=== PATIENT | female | born 2000 | race Caucasian/White ===

== ENCOUNTER → 2019-12-15 14:14 | Outpatient (BNVA) | payer MEDICAID, SELFPAY | PROVIDERS: Family Provider Family Medicine; PCP Family Medicine; Visit Provider Nurse Practitioner Women's Health | DX: Z34.90 Encounter for supervision of normal pregnancy, unspecified, unspecified trimester (principal) | CPT/HCPCS: 81000 ==

== ENCOUNTER → 2019-12-29 14:03 | Outpatient (BNVA) | payer MEDICAID, SELFPAY | PROVIDERS: Family Provider Family Medicine; PCP Family Medicine; Visit Provider Obstetrics & Gynecology | DX: O26.842 Uterine size-date discrepancy, second trimester (principal); O99.332 Smoking (tobacco) complicating pregnancy, second trimester | CPT/HCPCS: 80053; 80307; 81000; 85027; 86592; 86762; 86803; 86850; 86900; 87340; 87491; 87591; 87806 ==

== ENCOUNTER → 2020-02-28 15:08 | Outpatient (BNVA) | payer MEDICAID, SELFPAY | PROVIDERS: Family Provider Family Medicine; PCP Family Medicine; Visit Provider Obstetrics & Gynecology | DX: O32.1XX0 Maternal care for breech presentation, not applicable or unspecified (principal); Z3A.23 23 weeks gestation of pregnancy | CPT/HCPCS: 76805 ==

== ENCOUNTER → 2020-03-01 13:04 | Outpatient (BNVA) | payer MEDICAID, SELFPAY | PROVIDERS: Family Provider Family Medicine; PCP Family Medicine; Visit Provider Obstetrics & Gynecology | DX: Z34.90 Encounter for supervision of normal pregnancy, unspecified, unspecified trimester (principal) | CPT/HCPCS: 81000 ==

== ENCOUNTER → 2020-04-05 14:12 | Outpatient (BNVA) | payer MEDICAID, SELFPAY | PROVIDERS: Family Provider Family Medicine; PCP Family Medicine; Visit Provider Obstetrics & Gynecology | DX: O23.40 Unspecified infection of urinary tract in pregnancy, unspecified trimester (principal); O99.333 Smoking (tobacco) complicating pregnancy, third trimester; F17.210 Nicotine dependence, cigarettes, uncomplicated; Z3A.28 28 weeks gestation of pregnancy | CPT/HCPCS: 81000; 82950; 85027; 87086 ==

== ENCOUNTER → 2020-04-19 13:54 | Outpatient (BNVA) | payer MEDICAID, SELFPAY | PROVIDERS: Family Provider Family Medicine; PCP Family Medicine; Visit Provider Obstetrics & Gynecology | DX: Z34.90 Encounter for supervision of normal pregnancy, unspecified, unspecified trimester (principal) | CPT/HCPCS: 81000 ==

== ENCOUNTER → 2020-05-03 13:54 | Outpatient (BNVA) | payer MEDICAID, SELFPAY | PROVIDERS: Family Provider Family Medicine; PCP Family Medicine; Visit Provider Obstetrics & Gynecology | DX: Z34.90 Encounter for supervision of normal pregnancy, unspecified, unspecified trimester (principal) | CPT/HCPCS: 81000 ==

== ENCOUNTER → 2020-05-22 10:34 | Outpatient (BNVA) | payer MEDICAID, SELFPAY | PROVIDERS: Family Provider Family Medicine; PCP Family Medicine; Visit Provider Obstetrics & Gynecology | DX: Z34.83 Encounter for supervision of other normal pregnancy, third trimester (principal) | CPT/HCPCS: 81000 ==

== ENCOUNTER → 2020-05-31 14:41 | Outpatient (BNVA) | payer MEDICAID, SELFPAY | PROVIDERS: Family Provider Family Medicine; PCP Family Medicine; Visit Provider Obstetrics & Gynecology | DX: Z34.83 Encounter for supervision of other normal pregnancy, third trimester (principal) | CPT/HCPCS: 81000; 87081 ==

== ENCOUNTER → 2020-06-07 15:11 | Outpatient (BNVA) | payer MEDICAID, SELFPAY | PROVIDERS: Family Provider Family Medicine; PCP Family Medicine; Visit Provider Obstetrics & Gynecology | DX: Z34.83 Encounter for supervision of other normal pregnancy, third trimester (principal) | CPT/HCPCS: 81000 ==

== ENCOUNTER 2020-06-08 12:05 | Outpatient (CLI) | payer MEDICAID, SELFPAY ==
[2020-06-08 12:43] VITALS: BMI 24.9
[2020-06-08 12:51] VITALS: BP 136/72; PULSE 78
[2020-06-08 12:59] LABS: Nitrazine Paper, PH Negative
[2020-06-08 13:01] LABS: Nitrazine Paper, PH Negative
--- NOTE | 2020-06-08 13:09 | PM.ACPR ---
Procedure/Consent Procedure Narrative: NONSTRESS TEST: Place of test: [facility] [place]D Indication: 19-year-old 2 para 1-0-0-1 at 37 weeks with abdominal pain and leaking of fluid Date and time of test: 06/08/2020 1:30 PM Baseline: 135 Variability: Moderate variability Accelerations: Present Decelerations: No decelerations Tocometry: No contractions, some irritability INTERPRETATION: NST reactive, reassuring status, continue kick counts
[2020-06-08 13:21] VITALS: BP 132/76; PULSE 82
[2020-06-08 14:31] VITALS: BP 132/76; PULSE 82; RESP 18
== END 2020-06-08 13:40 | disposition home or self-care (01) ==
LOC: OPOB 12:11 → NUR 12:15 → OBGYN 12:25
PROVIDERS: Absent Provider Obstetrics & Gynecology; Family Provider Family Medicine; PCP Family Medicine; Visit Provider Obstetrics & Gynecology
DX: O26.899 Other specified pregnancy related conditions, unspecified trimester (principal); Z3A.00 Weeks of gestation of pregnancy not specified; R10.9 Unspecified abdominal pain; N89.8 Other specified noninflammatory disorders of vagina
CPT/HCPCS: 59025; 83986; 99211

== ENCOUNTER 2020-06-08 21:57 | Inpatient (IN) | payer MEDICAID, SELFPAY ==
[2020-06-08] VITALS (48 sets, daily range): BP systolic 115–161; BP diastolic 56–90; PULSE 64–95; RESP 16–17; TEMP 36.4; O2SAT 98–100; BMI 24.9
[2020-06-08 20:29] LABS: Basophils # 0.1 10^3/uL (0.0-0.1); Basophils % 0.4 %; Eosinophils # 0.5 10^3/uL (0.0-0.8); Eosinophils % 2.9 %; Hematocrit 38.7 % (37.0-47.0); Hemoglobin 12.8 g/dL (11.5-15.3); Lymphocytes # 2.4 10^3/uL (1.5-6.5); Lymphocytes % 14.6 %; Mean Corpuscular HGB Conc 33.1 g/dL (30.0-36.0); Mean Corpuscular Hemoglobin 30.1 pg (28.0-34.0); Mean Corpuscular Volume 91.1 fL (81-99); Mean Platelet Volume 11.9 fL (7.4-10.4); Monocytes # 0.8 10^3/uL (0.2-0.9); Monocytes % 5.1 %; Neutrophils # 12.62 10^3/uL (1.8-8.0); Neutrophils % 76.7 %; Nucleated Red Blood Cells % 0 %; Platelet Count 187 10^3/cmm (130-400); Red Blood Count 4.25 10^6/uL (4.1-5.3); Red Cell Distribution Width 13.5 % (12.1-15.1); White Blood Count 16.5 10^3/uL (4.5-13.0)
[2020-06-08] MEDS: lactated ringers 1,000 ML 999 ML IV ×2 (20:31→22:06)
--- NOTE | 2020-06-08 20:37 | PC.NURSE ---
called lab, machine that runs protein creatinine ratio is down for maintenance, results will be available in approximately 45 min.
[2020-06-08 20:38] LABS: Alanine Aminotransferase 9 U/L (0-33); Albumin Level 3.6 g/dL (3.5-5.2); Alkaline Phosphatase 171 IU/L (35-105); Anion Gap 14.7 (5-19); Aspartate Amino Transferase 12 U/L (0-32); Blood Urea Nitrogen 12 mg/dL (6-20); Carbon Dioxide 23 mmol/L (22-29); Chloride 104 mmol/L (98-107); Globulin 3.4 g/dL (1.3-4.6); Glomerular Filtration Rate 127.5 mL/min (90-130); Glucose 78 mg/dL (65-115); Osmolality Calculated 285 mOsm/kg (285-295); Potassium 3.7 mmol/L (3.5-5.1); Sodium 138 mmol/L (136-145); Total Bilirubin 0.2 mg/dL (0.15-1.2); Uric Acid 4.3 mg/dL (2.4-5.7)
[2020-06-08 22:01] LABS: UPRO/UCREAT Ratio 0.06 mg/mg CR; Urine Creatinine 142 mg/dL (28-217); Urine Protein Random 9 mg/dL
--- NOTE | 2020-06-08 22:55 | ANES.PREANE2 ---
Pre-Anesthetic Assessment Pre-Anesthetic Assessment: Height/Weight: Height 1.7 m Weight 72.121 kg Temp Pulse Resp BP Pulse Ox 97.5 F L 68 16 126/60 100 06/08/20 20:13 06/08/20 22:51 06/08/20 19:01 06/08/20 22:51 06/08/20 22:49 Preop Diagnosis: labor pains Proposed Procedure: epidural Familial anesthetic complications: nerve pain post previous epidural. Was Beta Zohaib taken within 24 hours: N/A Was Clonidine taken within 24 hours: N/A Social: Social History: Tobacco and No alcohol Packs per day: 0.5 Exam: Pre-Anes Outpt Exam: alert, oriented x 3, clear to auscultation bilaterally and regular rate & rhythm Airway: Submandibular: WNL Cervical ROM: WNL MP: 1 Dentition: Full Pulmonary: Pulmonary: None reported CV/HEM: CV/HEM: None reported : : None reported Hepatic: Hepatic: None reported GI: GI: None reported Metabolic: Metabolic: None reported Musc/skel: Musc/skel: None reported Neuropsych: Neuropsych: ACUNA (migraines) Anesthetic Plan: ASA status: 2 Anesthesia: Regional (specify below) Risk of > 500 ml blood loss (7ml/kg in children): No Meds/Allergies Current Medications: Current Medications Generic Name Dose Route Start Last Admin Trade Name Freq PRN Reason Stop Dose Admin Lactated Ringer's 1,000 mls @ 999 m ls/hr 06/08/20 21:57 06/08/20 22:06 Lactated Ringers IV 999 mls/hr .Q1H1M PRN Administration See label comment s PFSH Anesthesia PFSH: Medical History (Updated 06/04/20 @ 16:02 by Chencho Garcia MD) Blood type O+ Excessive and frequent menstruation with irregular cycle Migraine States no meds needed for a while. Had been tried on amitriptyline in the past without help. Surgical History (Updated 12/31/19 @ 17:07 by Chencho Garcia MD) Hx of tonsillectomy (03/13/17) Performed in [place], [place] Family History Mother Hypertension Father Hypertension Hypercholesteremia Grandfather Hypertension Maternal Heart disease Maternal Grandfather Hypercholesteremia Maternal Grandmother Hypertension Maternal Heart disease Maternal Thyroid disease Maternal Hypercholesteremia Maternal Breast cancer Paternal Colon cancer Paternal Family/Other Diabetes Maternal aunt and maternal great aunt Thyroid disease Maternal Aunt, Maternal Great Aunt Breast cancer Maternal Great aunt Social History (Updated 06/04/20 @ 15:55 by Chencho Garcia MD) Smoking and tobacco status: current every day smoker cigarettes [ Other cigarette details: Started age 17. Was 1 pack/day. ] Quit status (tobacco): considering quitting Alcohol intake: never Female Reproductive History: : 2 Data Anesthesia CBC & Chem 7: 06/08/20 20:00 06/08/20 20:00 Other Labs: Laboratory Results - last 48 hr 06/08/20 06/08/20 06/08/20 20:00 20:00 20:11 WBC 16.5 H RBC 4.25 Hgb 12.8 Hct 38.7 MCV 91.1 MCH 30.1 MCHC 33.1 RDW 13.5 Plt Count 187 MPV 11.9 H Neut % (Auto) 76.7 Lymph % (Auto) 14.6 Carolina % (Auto) 5.1 Eos % (Auto) 2.9 Baso % (Auto) 0.4 Neut # (Auto) 12.62 H Lymph # (Auto) 2.4 Carolina # (Auto) 0.8 Eos # (Auto) 0.5 Baso # (Auto) 0.1 Nucleated RBC % (auto) 0 Nucleated RBCs # 0.0 Sodium 138 Potassium 3.7 Chloride 104 Carbon Dioxide 23 Anion Gap 14.7 BUN 12 Creatinine 0.6 GFR Calculation 127.5 Glucose 78 Calculated Osmolality 285 Uric Acid 4.3 Calcium 9.0 Total Bilirubin 0.2 AST 12 ALT 9 Alkaline Phosphatase 171 H Total Protein 7.0 Albumin 3.6 Globulin 3.4 U Random Total Protein 9 Urine Creatinine 142 Protein/Creatinin Ratio 0.06 Cardiac Studies: No Data to Display
--- NOTE | 2020-06-08 22:58 | P.ANES_ITS ---
Anesthesia Procedures Procedure/Date: 06/08/20 epidural Procedure Narrative: epidural complete, bolus given, epidural pump initiated with MANAGER INVENTORY CONTROL education given, vitals taken during procedure using OBIX system and satisfactory throughout, patient admits to decrease pain, report of procedure to OB RN Epidural: Time Out Performed: Yes Consents Signed: Procedure Consent Consent: requested by attending/covering physician, from patient, risks and benefits reviewed and patient agrees to proceed Lumbar Level: L3-L4 Epidural position: sitting Epidural procedure: sterile prep of area, 1% lidocaine to numb the area (3 mL), 18 g needle, negative for paresthesia passed, neg for paresthesia, test dose given, 1.5% xylocaine 1:200k epi (5 mL), 0.2% Ropivacaine bolus ml (5 mL), placed PCEA, no systemic response, sterile dressing applied, L.U.D. no apparent complications and 0.2% Ropiavacaine @ mls/hr (13 mL/hr)
[2020-06-09] VITALS (41 sets, daily range): BP systolic 98–141; BP diastolic 50–75; PULSE 65–111; RESP 16; TEMP 36.7; O2SAT 97–100
[2020-06-09] MEDS: oxytocin 30 UNIT/500 ML BAG IV (00:57)
[2020-06-09] MEDS: dextrose 5%-lactated ringers 1,000 ML 125 ML IV (03:48)
[2020-06-09] MEDS: miSOPROStol 200 mcg Tablet 400 MCG PR (06:40)
--- NOTE | 2020-06-09 07:25 | PM.DELIVERY ---
Delivery Note: Date of delivery: June 09, 2020 - PRE-DELIVERY DIAGNOSIS: 19-year-old 2 para 1-0-0-1 at 37 weeks and 4 days gestation Active labor GBS negative Elevated blood pressure- likely secondary to pain POST-DELIVERY DIAGNOSIS: Vaginal delivery on 06/09/2020 PROCEDURE: Vaginal delivery on 06/09/2020 ANESTHESIA: Epidural anesthesia DELIVERING PHYSICIAN: Godwin Cooper FACOG PRE-DELIVERY COURSE: Ms. Perla is a 19-year-old 2 para 1-0-0-1 at 37 weeks and 3 days gestation who presented to labor and delivery on 06/08/2020 with reports of contractions. She had been seen earlier in the day and was noted to be 3/70-2 station. When she presented later that evening she was noted to be exactly the same however looked a lot more uncomfortable and was breathing through few contractions. tracing was category 1 and she was elmer every 2 to 5 minutes. She was also noted to have elevated blood pressure of 140/90. Preeclamptic labs were sent and protein creatinine ratio was normal and other labs were also normal. During her observation over 3 hours she made cervical change to 4 cm 90% and -1 station and was uncomfortable elmer every 3 minutes. She was admitted in active labor, GBS was negative and Covid swabbing was done. She progressed to 5 cm 90% and -1 station and received an epidural. After this her contractions did space out to every 6 to 7 minutes and as result Pitocin was started to augment labor which was titrated to a maximum of 4 mIU and with this she made steady cervical change and was fully dilated by 5:45 AM on 06/09/2020. She was set up in lithotomy ready to push. tracing was category 1 thus far. DELIVERY NOTE: She was set up in lithotomy position and was pushing effectively. She was noted to be +3 station and continued pushing well. The head delivered in JOSE J position, nuchal cord x1 present. The shoulders and rest of the body followed with her next push. The baby's mouth and nose were suctioned and the baby was placed on the mother's belly. Once cord pulsations stopped the cord was clamped and cut. The placenta delivered spontaneously intact with membranes and was discarded. The fundus was noted to be firm and well contracted. The vagina and cervix were inspected and no cervical or sulcal lacerations were noted. The perineum was noted to be intact Baby boy, born at 6:33 AM on 06/09/2020 with 9/9, weighing 6 pounds 8 ounces, 18.5 inches long. Placenta was delivered spontaneously intact with membranes at 6:37 AM. Cotyledons were intact , centrally inserted umbilical cord with 3 vessels noted. Appears to have a circumvallate membrane incision. Pathology ordered Estimated blood loss 150 mL. Complications-none, both baby and mother were left to recover in a stable condition This documentation was created by [email or web address] advertising specialist software (known for inherent advertising specialist error). Every effort was made to assure accuracy of advertising specialist. Any obvious errors or omissions should be clarified with the author of the document. Coding Level of Care Code Acute Manager Product for Shawna Bower
[2020-06-09] MEDS: docusate sodium 100 mg Capsule PO (08:31)
[2020-06-09] MEDS: ibuprofen 800 mg tablet PO ×3 (08:31→21:57)
[2020-06-09] MEDS: benzocaine-menthol 78 gm Canister 1 SPRAY TOPICAL (08:31)
[2020-06-09] MEDS: lanolin oint 7 gm 1 APPLIC TOPICAL (08:31)
[2020-06-09] MEDS: prenatal vitamin Capsule 1 CAP PO (08:31)
[2020-06-09 20:46] LABS: Hematocrit 36.4 % (37.0-47.0); Hemoglobin 11.9 g/dL (11.5-15.3); Mean Corpuscular HGB Conc 32.7 g/dL (30.0-36.0); Mean Corpuscular Hemoglobin 30.2 pg (28.0-34.0); Mean Corpuscular Volume 92.4 fL (81-99); Mean Platelet Volume 11.9 fL (7.4-10.4); Platelet Count 236 10^3/cmm (130-400); Red Blood Count 3.94 10^6/uL (4.1-5.3); Red Cell Distribution Width 13.5 % (12.1-15.1); White Blood Count 17.1 10^3/uL (4.5-13.0)
[2020-06-10 03:50] VITALS: BP 120/59; PULSE 73
--- NOTE | 2020-06-10 08:04 | PC.NURSE ---
0730 PT SOUND ASLEEP, DID NOT WAKE HER, TALKED WITH DAD ABOUT HEARING SCREEN,ETC. ASKED HIM TO CALL ME WHEN SHE WAKES UP AND I WOULD DO HER ASSESSMENT, TOLD HIM THAT IT WAS NO HURRY.
[2020-06-10 08:30] VITALS: BP 126/79; PULSE 73; RESP 18; TEMP 36.9
[2020-06-10] MEDS: ibuprofen 800 mg tablet PO (09:53)
[2020-06-10] MEDS: docusate sodium 100 mg Capsule PO (09:53)
[2020-06-10] MEDS: prenatal vitamin Capsule 1 CAP PO (09:53)
--- NOTE | 2020-06-10 11:44 | PM.OBGYDC ---
Discharge Providers AUTOMOTIVE TIRE TESTING SUPERVISOR Date of Admission: 06/08/20 21:57 Date of Discharge: 06/10/20 Attending Provider at Admission: Godwin Bingham MD Attending Provider at Discharge: Godwin Bingham MD PRE-DELIVERY DIAGNOSIS: 19-year-old 2 para 1-0-0-1 at 37 weeks and 4 days gestation Active labor GBS negative Elevated blood pressure- likely secondary to pain POST-DELIVERY DIAGNOSIS: Vaginal delivery on 06/09/2020 PROCEDURE: Vaginal delivery on 06/09/2020 ANESTHESIA: Epidural anesthesia DELIVERING PHYSICIAN: Godwin Cooper FACOG PRE-DELIVERY COURSE: Ms. Perla is a 19-year-old 2 para 1-0-0-1 at 37 weeks and 3 days gestation who presented to labor and delivery on 06/08/2020 with reports of contractions. She had been seen earlier in the day and was noted to be 3/70-2 station. When she presented later that evening she was noted to be exactly the same however looked a lot more uncomfortable and was breathing through few contractions. tracing was category 1 and she was elmer every 2 to 5 minutes. She was also noted to have elevated blood pressure of 140/90. Preeclamptic labs were sent and protein creatinine ratio was normal and other labs were also normal. During her observation over 3 hours she made cervical change to 4 cm 90% and -1 station and was uncomfortable elmer every 3 minutes. She was admitted in active labor, GBS was negative and Covid swabbing was done. She progressed to 5 cm 90% and -1 station and received an epidural. After this her contractions did space out to every 6 to 7 minutes and as result Pitocin was started to augment labor which was titrated to a maximum of 4 mIU and with this she made steady cervical change and was fully dilated by 5:45 AM on 06/09/2020. She was set up in lithotomy ready to push. tracing was category 1 thus far. DELIVERY NOTE: She was set up in lithotomy position and was pushing effectively. She was noted to be +3 station and continued pushing well. The head delivered in JOSE J position, nuchal cord x1 present. The shoulders and rest of the body followed with her next push. The baby's mouth and nose were suctioned and the baby was placed on the mother's belly. Once cord pulsations stopped the cord was clamped and cut. The placenta delivered spontaneously intact with membranes and was discarded. The fundus was noted to be firm and well contracted. The vagina and cervix were inspected and no cervical or sulcal lacerations were noted. The perineum was noted to be intact Baby boy,[place], born at 6:33 AM on 06/09/2020 with 9/9, weighing 6 pounds 8 ounces, 18.5 inches long. Placenta was delivered spontaneously intact with membranes at 6:37 AM. Cotyledons were intact , centrally inserted umbilical cord with 3 vessels noted. Appears to have a circumvallate membrane incision. Pathology ordered Estimated blood loss 150 mL. Complications-none, both baby and mother were left to recover in a stable condition HOSPITAL COURSE: She underwent an uncomplicated vaginal delivery on 06/09/2020. She did well on day 0 and was ambulating well, tolerating regular diet, voiding freely, passing flatus. She was breast-feeding without difficulty and bonding well with her son. She did not want him circumcised.. Pain was well-controlled with by mouth pain medication. She denied nausea, vomiting, fever, chills, shortness of breath, leg pain. She had moderate vaginal bleeding. On day # 1 she continued to do well with stable vital signs and stable hemoglobin at 11.9. She was discharged home on day 1 in a stable condition, as she desired early discharge. Warning signs for endometritis, mastitis, DVT/PE were reviewed with her. Post delivery activity restrictions were also reviewed with her at all her questions were answered to her satisfaction. Plans on Use on Depo for contraception and she received Depo-Provera on 06/10/2020 prior to discharge EXAM AT DISCHARGE: Gen.: No acute distress Heart: S1-S2 heard, regular rate and rhythm Lungs: Clear to auscultation bilaterally Abdomen: Soft, fundus firm below umbilicus Legs: No calf tenderness, trace bilateral pitting pedal edema. CONDITION AT DISCHARGE: Stable This documentation was created by [employer] glass production machine operator software (known for inherent glass production machine operator error). Every effort was made to assure accuracy of glass production machine operator. Any obvious errors or omissions should be clarified with the author of the document. Primary Care Provider: Jasbir Clemons Reason for Visit Reason for Visit: CONTRACTIONS Information Peripartum Data: Delivery Method: Vaginal Physical Exam Urinary Catheter Management^: Burr Latex: Cath Placed During This Visit: yes, but has since been removed by the nurse Reason for Continuing Indwelling Catheter: Decision to DC Catheter Urinary Catheter Date of Insertion: 06/08/20 Urinary Catheter Time of Insertion: 23:15 Date Urinary Catheter Removed: 06/09/20 Time Urinary Catheter Discontinued: 06:20 Discharge Data Data Completed and Pending: Pending at discharge Category Date Time Status COVID [Coronaviru s Test Green Count y] Routine Lab 06/08/20 23:00 Received Pathology: Surgic al [PTH] Routine Pth 06/09/20 07:02 Received Labs from last 24 hours 06/09/20 19:20 WBC 17.1 H RBC 3.94 L Hgb 11.9 Hct 36.4 L MCV 92.4 MCH 30.2 MCHC 32.7 RDW 13.5 Plt Count 236 MPV 11.9 H Vitals: Last Vital Signs Temp 98.5 F 06/10/20 08:30 Pulse 73 06/10/20 08:30 Resp 18 06/10/20 08:30 BP 126/79 06/10/20 08:30 Pulse Ox 97 06/09/20 00:54 Discharge Plan Discharge Patient Disposition: Home Condition: Stable Prescriptions: New docusate sodium 100 mg Capsule 100 mg PO BID PRN (Reason: constipation) Qty: 30 RF: 0 ibuprofen 800 mg tablet 800 mg PO Q8H Qty: 30 RF: 0 Continued prenat.vits,molly,[id number] Tablet 1 tab PO DAILY RF: 0 Discharge Orders: Discharge Order (Routine); Ordered 06/10/20 Ordered By: Godwin Bingham Referrals: Chencho Garcia MD [Physician] - (6-week with Dr. Garcia) Activity Restrictions/Additional Instructions: Pelvic rest for 6 weeks, no heavy lifting for 6 weeks. Discharge Attestations AUTOMOTIVE TIRE TESTING SUPERVISOR Time Spent in Discharge Care*: greater than 30 min Coding Level of Care Code Acute Parts Counter Salesperson for Chg Sathish
[2020-06-10 12:58] VITALS: BP 122/80; PULSE 77
[2020-06-10 13:00] VITALS: BP 122/80; PULSE 77; RESP 18; TEMP 36.8; O2SAT 97
[2020-06-10 13:51] VITALS: BP 122/80; PULSE 77; RESP 18; TEMP 36.8; O2SAT 97
--- NOTE | 2020-06-10 14:27 | PC.RESP ---
Smoking Cessation information sent to patient.
[2020-06-10 14:59] LABS: Coronavirus Test Green County Not Detected
== END 2020-06-10 13:25 | disposition home or self-care (01) | DRG 807 ==
LOC: OPOB 21:58 → OBGYN 21:58
PROVIDERS: Admitting Provider Obstetrics & Gynecology; Family Provider Family Medicine; PCP Family Medicine; Visit Provider Obstetrics & Gynecology
DX: O69.2XX0 Labor and delivery complicated by other cord entanglement, with compression, not applicable or unspecified (principal); Z37.0 Single live birth; O99.334 Smoking (tobacco) complicating childbirth; F17.210 Nicotine dependence, cigarettes, uncomplicated; Z3A.37 37 weeks gestation of pregnancy; O75.89 Other specified complications of labor and delivery; G43.909 Migraine, unspecified, not intractable, without status migrainosus
CPT/HCPCS: 36415; 51702; 59409; 80053; 82570; 84156; 84550; 85025; 85027; 86850; 86900; 87635; 88307; 99211; J2795

== ENCOUNTER → 2021-06-24 13:30 | Outpatient (BNVA) | payer MEDICAID, SELFPAY | PROVIDERS: Family Provider Family Medicine; PCP Family Medicine; Visit Provider Obstetrics & Gynecology | DX: Z12.4 Encounter for screening for malignant neoplasm of cervix (principal) | CPT/HCPCS: 88175 ==

== ENCOUNTER → 2021-06-30 12:06 | Outpatient (BNVA) | payer MEDICAID, SELFPAY | PROVIDERS: Family Provider Family Medicine; PCP Family Medicine; Visit Provider Obstetrics & Gynecology | DX: Z30.9 Encounter for contraceptive management, unspecified (principal) | CPT/HCPCS: 81025 ==

== ENCOUNTER 2021-10-19 18:03 | Emergency (ER) | payer MEDICAID, SELFPAY ==
[2021-10-19 18:24] VITALS: BP 135/75; PULSE 88; RESP 18; TEMP 36.9; O2SAT 100; BMI 21.9
--- NOTE | 2021-10-19 18:55 | ED_ITS ---
HPI - General Adult General: Chief complaint: General Medical Stated complaint: Pubic Ingrown Hair Time Seen by Provider: 10/19/21 18:53 History of Present Illness: 20-year-old female comes in today for concerns of ingrown hair in the left inguinal fold. Patient reports for about the last month and a half she has had irritation to the skin to the area in which she has been able to express purulent fluid. Patient been seen by primary care and was treated with cephalexin. Patient reported some improvement but then worsening symptoms over the last 2 days. Associated symptoms: Reports chest pain and dyspnea Review of Systems General: Reports: 10 or more systems reviewed and unremarkable except in HPI and below Card: Reports: chest pain Resp: Reports: dyspnea Skin/Breast: Reports: erythema and new lesions PFSH ED PFSH: Medical History Migraine Denies orders-has not needed medication in a couple of years. Denies having any symptoms since about 2019. No pertinent past medical history Denies diabetes, asthma, hypertension, seizures, DVT/PE PCP: KYLEIGH Reyes Surgical History Hx of tonsillectomy (03/13/17) Performed in [place], [place] Family History Mother Hypertension Father Hypertension Hypercholesteremia Grandfather Hypertension Maternal Heart disease Maternal Grandmother Hypertension Maternal Heart disease Maternal Thyroid disease Maternal Hypercholesteremia Maternal Breast cancer Paternal, age at diagnosis unknown Colon cancer Paternal, age at diagnosis unknown Family/Other Diabetes Maternal aunt and maternal great aunt Thyroid disease Maternal Aunt, Maternal Great Aunt Denies family history of Uterine cancer Stroke Physical Exam Const: COMMON NORMALS: alert HENMT: COMMON NORMALS: normocephalic HEAD & SCALP: normocephalic Resp: COMMON NORMALS: normal respiratory effort and clear to auscultation bilaterally AUSCULTATION: clear to auscultation bilaterally Cardio: COMMON NORMALS: regular rate RATE: regular rate : EXTERNAL FEMALE EXAM: Yes erythema (Left inguinal area approximately 2 cm x 5 mm) and Yes lesion (3 inflamed follicles in the area of erythema) Extremity: COMMON NORMALS: normal to inspection Neuro: SENSORIUM/ORIENTATION: Yes alert Skin: COMMON NORMALS: no rashes or lesions noted GENERAL SKIN EXAM: no rashes or lesions noted Course Vital Signs: Vital signs: Vital Signs Temperature 98.5 F 10/19/21 18:24 Pulse Rate 88 10/19/21 19:10 Respiratory Rate 16 10/19/21 19:10 Blood Pressure 141/87 10/19/21 19:10 Pulse Oximetry 100 10/19/21 18:24 Oxygen Delivery Me thod 10/19/21 18:24 MDM - General Adult Medical Decision Making 20-year-old female comes in today for complaints of inflammation in the left inguinal fold. On exam there is 3 follicles that are inflamed and swollen. Patient had reported some purulent drainage from it. No significant fluctuance or abscesses noted. Differential diagnosis includes abscess, cellulitis, folliculitis. Recommend treatment for folliculitis we will cover with clindamycin 303 times a day for [address] patient on mupirocin ointment to each of the lesions until healed. Patient was given some Toradol to help with the pain. Follow-up with primary care, or return to the ER for worsening symptoms. Discharge Plan Discharge Patient Disposition: Home Clinical Impression: Folliculitis barbae Condition: Stable Prescriptions: New mupirocin 2 % ointment 1 applic topical BID Qty: 22 0RF clindamycin HCl 300 mg capsule 300 mg PO TID 7 Days Qty: 21 0RF ketorolac 10 mg tablet 10 mg PO Q6H PRN (Reason: pain) Qty: 14 0RF Discontinued cephalexin 500 mg capsule 500 mg PO BID Qty: 14 0RF No Action Mirena 20 mcg/24 hours (7 yrs) 52 mg intrauterine device 1 insert intrauterine .every 6 years Qty: 1 0RF Discharge Orders: Discharge ED (Routine); Ordered 10/19/21 Ordered By: Zackary Gaitan Referrals: Jasbir Clemons [Primary Care Provider] - Discharge Diet: Usual diet Discharge Activity: Increase activity as tolerated Patient Instructions: Folliculitis (ED) Activity Restrictions/Additional Instructions: Use the mupirocin ointment 2 times a day to each of the lesions or any new lesions until healed. Take clindamycin 300 mg 3 times a day for 7 days. Use ketorolac 10 mg tablets every 6 hours as needed for pain. Use acetaminophen for further pain relief. Do not use ibuprofen or naproxen with ketorolac. Warm moist packs to the area for further comfort. Wear loosefitting clothes for comfort. Avoid shaving until lesions are cleared. Use mupirocin ointments for any new lesions. Coding Level of Care Code ED Flow Floor Attendant for Shawna Bower
[2021-10-19 19:10] VITALS: BP 141/87; PULSE 88; RESP 16
[2021-10-19] MEDS: mupirocin oint 22 gm 1 APPLIC TOPICAL (19:13)
[2021-10-19] MEDS: clindamycin 150 mg Capsule 300 MG PO (19:13)
[2021-10-19] MEDS: ketorolac 10 mg Tablet PO (19:13)
[2021-10-19 19:24] VITALS: BP 141/87; PULSE 88; RESP 16
== END 2021-10-19 19:26 | disposition home or self-care (01) ==
PROVIDERS: Emergency Provider Nurse Practitioner Family; PCP Family Medicine
DX: L73.1 Pseudofolliculitis barbae (principal)
CPT/HCPCS: 99283

== ENCOUNTER 2021-11-24 14:32 | Emergency (ER) | payer BC, MEDICAID, SELFPAY ==
[2021-11-24 14:56] VITALS: BP 153/103; PULSE 84; RESP 16; TEMP 36.8; O2SAT 99; BMI 23.3
--- NOTE | 2021-11-24 16:34 | ED_ITS ---
HPI - Back Pain/Injury General: Chief Complaint: Back Pain/Injury Stated Complaint: Upper back pain Time Seen by Provider: 11/24/21 15:39 Source: patient Mode of arrival: ambulatory History of Present Illness: 21 yo female with history of chronic back pain presents to the emergency room complaining of back pain in the lower lumbar region. No loss of bowel function no urinary retention. No trauma she believes it came from lifting. She is not previously had any advanced imaging. No radiation of pain into her legs. MD elicited complaint: back pain Pertinent past history: prior back pain Onset (ago): minute(s) Severity: severe Similar Symptoms Previously: Yes Location: lumbar spine Radiation: none Exacerbating factors: none Relieving factors: none Associated symptoms: Reports difficulty walking; Deny abdominal pain, arthralgias, chills, change in bowel habits, dysuria, fatigue, fecal incontinence, fever(s), hematuria, myalgias, nausea, numbness, syncope, tingling/numbness/burning, urinary frequency, urinary urgency, vomiting or weakness Work related injury: No Review of Systems Const: Denies: fever(s), chills or fatigue ENMT: Denies: throat pain, ear or mastoid pain, nasal discharge or nasal congestion Card: Denies: chest pain, palpitations or syncope Resp: Denies: dyspnea, productive cough or non-productive cough GI: Denies: abdominal pain, nausea, vomiting, fecal incontinence or change in bowel habits : Denies: flank pain, difficulty voiding, dysuria, urinary frequency, u rinary urgency or hematuria Musc: Reports: back pain Skin/Breast: Denies: rash or pruritus Neuro: Reports: difficulty walking [facility] ED PFSH: Medical History Migraine Denies orders-has not needed medication in a couple of years. Denies having any symptoms since about 2019. No pertinent past medical history Denies diabetes, asthma, hypertension, seizures, DVT/PE PCP: KYLEIGH Reyes Surgical History Hx of tonsillectomy (03/13/17) Performed in [place], [place] Family History Mother Hypertension Father Hypertension Hypercholesteremia Grandfather Hypertension Maternal Heart disease Maternal Grandmother Hypertension Maternal Heart disease Maternal Thyroid disease Maternal Hypercholesteremia Maternal Breast cancer Paternal, age at diagnosis unknown Colon cancer Paternal, age at diagnosis unknown Family/Other Diabetes Maternal aunt and maternal great aunt Thyroid disease Maternal Aunt, Maternal Great Aunt Denies family history of Uterine cancer Stroke Physical Exam Const: GENERAL APPEARANCE: cooperative ORIENTATION/CONSCIOUSNESS: Yes awake, Yes oriented to person, Yes oriented to place and Yes oriented to time HENMT: COMMON NORMALS: normocephalic and atraumatic HEAD & SCALP: normocephalic and atraumatic Resp: COMMON NORMALS: normal respiratory effort, No retractions, No use of accessory muscles and clear to auscultation bilaterally AUSCULTATION: clear to auscultation bilaterally Cardio: COMMON NORMALS: regular rate, regular rhythm and No murmurs present (Cardio) RATE: regular rate RHYTHM: regular rhythm GI: COMMON NORMALS: Soft to palpation and No hepatosplenomegaly present AUSCULTATION: Yes normoactive bowel sounds PALPATION: Yes Soft to palpation, No Tenderness to palpation present (GI), No Guarding due to palpation present (GI) and Yes No hepatosplenomegaly present Extremity: COMMON NORMALS: normal to inspection, capillary refill normal, no clubbing, cyanosis or edema, no calf tenderness and no pedal edema Neuro: SENSORIUM/ORIENTATION: Yes oriented to person, Yes oriented to place and Yes oriented to time OTHER: Straight leg raising is negative bilaterally deep tendon reflexes of patellar tendons +2 for dorsi and plantarflex strength at the ankle is normal sensation normal Skin: COMMON NORMALS: no rashes or lesions noted GENERAL SKIN EXAM: no rashes or lesions noted Course Vital Signs: Vital signs: Vital Signs Temperature 98.2 F 11/24/21 14:56 Pulse Rate 84 11/24/21 14:56 Respiratory Rate 16 11/24/21 14:56 Blood Pressure 153/103 11/24/21 14:56 Pulse Oximetry 99 11/24/21 14:56 Oxygen Delivery Me thod 11/24/21 14:56 MDM - Back Pain/Injury Medical Decision Making Musculoskeletal low back pain medications given in the ER did help some. Will discharge home prednisone diclofenac tizanidine follow-up with primary care if symptoms continue to worsen may need advanced imaging. At this point she does not have any radicular-like symptoms suspect it is more musculoskeletal does not appear to on exam to be any in nerve impingement. If persists may need further evaluation. Medical Records I reviewed the patient's medical records. Labs I reviewed the patient's lab results. Discharge Plan Discharge Patient Disposition: Home Clinical Impression: Strain of lumbar region, Sciatica Condition: Stable Prescriptions: New prednisone 20 mg tablet 20 mg PO TID Qty: 15 0RF Rx Instructions: 1 p.o. 3 times daily x3 days, 1 p.o. twice daily x2 days, 1 p.o. daily x2 days diclofenac sodium 75 mg tablet,delayed release (DR/EC) 75 mg PO Q12H PRN (Reason: pain) Qty: 20 0RF tizanidine 4 mg tablet 4 mg PO Q6H PRN (Reason: muscle spasticity) Qty: 20 0RF Rx Instructions: do not exceed 3 doses per 24 hrs Discontinued ibuprofen 200 mg Capsule 200 mg PO Q6H PRN (Reason: Pain) Discharge Orders: Discharge ED (Routine); Ordered 11/24/21 Ordered By: Danial Cardenas Referrals: Nidhi Chacon [Primary Care Provider] - Patient Instructions: Opioid Safety Activity Restrictions/Additional Instructions: With your primary care doctor within the next week for further evaluation. Coding Level of Care Code ED Director Of Knowledge Management for Shawna Bower
[2021-11-24] MEDS: orphenadrine 30 mg/mL Inj 2 mL 60 MG IM (16:51)
[2021-11-24] MEDS: morphine 4 mg/mL SDV 1 mL IM (16:52)
[2021-11-24] MEDS: ketorolac 60 mg/2 mL INJ IM (16:53)
[2021-11-24] MEDS: dexamethasone 10 mg/mL INJ IM (16:53)
== END 2021-11-24 17:15 | disposition home or self-care (01) ==
PROVIDERS: Emergency Provider Family Medicine; PCP Nurse Practitioner Family
DX: S39.012A Strain of muscle, fascia and tendon of lower back, initial encounter (principal); M54.30 Sciatica, unspecified side; X50.0XXA Overexertion from strenuous movement or load, initial encounter
CPT/HCPCS: 96372; 99284; J1100; J1885; J2270; J2360

== ENCOUNTER 2022-05-16 10:28 | Emergency (ER) | payer MEDICAID, SELFPAY ==
[2022-05-16 11:18] VITALS: BP 117/84; PULSE 87; TEMP 37.2; O2SAT 99; BMI 22.7
[2022-05-16] MEDS: ketorolac 60 mg/2 mL INJ IM (12:38)
--- NOTE | 2022-05-16 12:52 | W.ED.DENTAL ---
HPI - Dental/Oral General: Chief complaint: Dental/Oral Stated complaint: Dental pain Time Seen by Provider: 05/16/22 11:28 Source: patient Mode of arrival: ambulatory Limitations: no limitations History of Present Illness: Patient presents emergency department today for evaluation treatment of right lower jaw and dental pain. Patient states she was at [facility] in [place] yesterday where she had her right lower wisdom tooth removed. She indicated she received a nerve block for pain relief and was discharged from their office with a handout with several do's and don'ts but did not receive any type of medication. Patient is having difficulty moving her jaw. She has significant right-sided facial swelling which she has been using an ice pack with little relief. Patient has been trying medication at home without pain relief and even took a family members Donahue last night to try and help with her pain. Patient states she was not told what to do if she had complications so she presents here for help. Associated symptoms: Reports odynophagia Review of Systems General: Reports: 10 or more systems reviewed and unremarkable except in HPI and below ENMT: Reports: odynophagia, mouth pain and dental pain PFSH ED PFSH: Medical History Migraine Denies orders-has not needed medication in a couple of years. Denies having any symptoms since about 2019. No pertinent past medical history Denies diabetes, asthma, hypertension, seizures, DVT/PE PCP: KYLEIGH Reyes Surgical History Hx of tonsillectomy (03/13/17) Performed in [place], [place] Family History Mother Hypertension Father Hypertension Hypercholesteremia Grandfather Hypertension Maternal Heart disease Maternal Grandmother Hypertension Maternal Heart disease Maternal Thyroid disease Maternal Hypercholesteremia Maternal Breast cancer Paternal, age at diagnosis unknown Colon cancer Paternal, age at diagnosis unknown Family/Other Diabetes Maternal aunt and maternal great aunt Thyroid disease Maternal Aunt, Maternal Great Aunt Denies family history of Uterine cancer Stroke Physical Exam Const: COMMON NORMALS: patient oriented x3 and alert; apparent distress (Patient is tearful) HENMT: OTHER: Patient has significant right lower jaw swelling without overlying erythema of the skin. Patient has difficulty opening her jaw and there is obvious swelling and redness of the right posterior gumline with obvious wound and sutures present. No signs of active bleeding. Profuse tenderness. Eye: COMMON NORMALS: Equal, round and reactive pupils present, EOMs intact bilaterally and conjunctivae normal CONJUNCTIVA: Yes conjunctivae normal PUPIL: Yes Equal, round and reactive pupils present Neck/C-Spine: COMMON NORMALS: no JVD Lymph: LYMPHATIC: no lymphadenopathy noted Resp: COMMON NORMALS: normal respiratory effort, No retractions and No use of accessory muscles Cardio: COMMON NORMALS: no JVD and regular rate RATE: regular rate : COMMON NORMALS: Yes no CVA tenderness BLADDER/KIDNEY EXAM: Yes no CVA tenderness Back/Pelvis: COMMON NORMALS: no CVA tenderness, thoracic and lumbar spine normal to inspection and thoraco-lumbar ROM normal Extremity: COMMON NORMALS: normal to inspection, full ROM and no pedal edema Neuro: COMMON NORMALS: patient oriented x3 SENSORIUM/ORIENTATION: Yes alert Skin: COMMON NORMALS: no rashes or lesions noted and turgor normal GENERAL SKIN EXAM: no rashes or lesions noted and turgor normal Course Vital Signs: Vital signs: Vital Signs Temperature 98.9 F 05/16/22 11:18 Pulse Rate 87 05/16/22 11:18 Blood Pressure 117/84 05/16/22 11:18 Pulse Oximetry 99 05/16/22 11:18 Oxygen Delivery Me thod 05/16/22 11:18 MDM - Dental/Oral Medical Decision Making Patient presents emergency department today for assistance with pain and swelling secondary to her oral surgery yesterday. Patient had her right lower wisdom tooth removed and is experiencing pain and swelling not improving with [id number] medications and ice. While I appreciate no acute concerns for infection at this time, I did encourage the patient to call the office today as there should be an on-call service, nurse, or on-call doctor to take a message or schedule an appointment. Patient needs to be seen in the office at the beginning of the week for recheck as she may be developing a dry socket. Patient was treated with narcotic pain medication from the ER today through the weekend as well as NSAIDs. 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 Patient was given strict return precautions for any new onset fever, or difficulty breathing due to any type of swelling or pressure developing into her neck. Differential Diagnosis Likely gingival abscess, dental caries, toothache (post op complication) and dental abscess Discharge Plan Discharge Patient Disposition: Home Clinical Impression: Post-operative pain, History of dental surgery, Right facial swelling Condition: Stable Prescriptions: New hydrocodone-acetaminophen 5-300 mg tablet 1 tab PO Q6H PRN (Reason: pain) 3 Days Qty: 12 0RF ibuprofen 800 mg tablet 800 mg PO Q8H PRN (Reason: pain) Qty: 30 0RF No Action prednisone 20 mg tablet 20 mg PO TID Qty: 15 0RF Rx Instructions: 1 p.o. 3 times daily x3 days, 1 p.o. twice daily x2 days, 1 p.o. daily x2 days diclofenac sodium 75 mg tablet,delayed release (DR/EC) 75 mg PO Q12H PRN (Reason: pain) Qty: 20 0RF tizanidine 4 mg tablet 4 mg PO Q6H PRN (Reason: muscle spasticity) Qty: 20 0RF Rx Instructions: do not exceed 3 doses per 24 hrs Discharge Orders: Discharge ED (Routine); Ordered 05/16/22 Ordered By: Christelle Jimenez Referrals: Nidhi Chacon FNP [Primary Care Provider] - Discharge Diet: As Directed Discharge Activity: Increase activity as tolerated Patient Instructions: Mouth Care (ED), Opioid Safety Activity Restrictions/Additional Instructions: Examination today does show significant swelling after your dental procedure yesterday. We are providing you a prescription of narcotic pain medication sent to your pharmacy as well as prescription ibuprofens. We treated you with a dose of Toradol here in the ER in hopes that your pain will improve to allow you to continue taking your medications. Continue to follow the instructions given to you by the oral surgeon's office however, I recommend you call the office first thing-as soon as you get home. They should have an answering service, nurse, or non destructive tester doctor to speak to and leave a message as I recommend you be seen and evaluated first thing on Wednesday. continue using an ice pack for comfort. I also recommend warm salt water rinses. If you develop swelling down into your neck making it difficult to breathe or should you spike a fever you need to be seen and reevaluated soon as possible. Coding Level of Care Code ED Dinkey Engine Firer for Shawna Bower
== END 2022-05-16 12:38 | disposition home or self-care (01) ==
PROVIDERS: Emergency Provider Physician Assistant; PCP Nurse Practitioner Family
DX: G89.18 Other acute postprocedural pain (principal); M79.89 Other specified soft tissue disorders; Z98.818 Other dental procedure status; K08.409 Partial loss of teeth, unspecified cause, unspecified class
CPT/HCPCS: 96372; 99284; J1885

== ENCOUNTER 2022-05-17 15:09 | Emergency (ER) | payer MEDICAID, SELFPAY ==
[2022-05-17 15:21] VITALS: BP 152/93; PULSE 85; RESP 14; TEMP 37.1; O2SAT 94; BMI 22.7
[2022-05-17 15:27] VITALS: BP 152/93; O2SAT 98
[2022-05-17 15:32] VITALS: BP 139/92; PULSE 84; RESP 16; O2SAT 98
--- NOTE | 2022-05-17 15:32 | CTR_ITS ---
PROCEDURE INFORMATION: Exam: CT Maxillofacial With Contrast Exam date and time: 05/17/2022 3:53 PM Age: 21 years old Clinical indication: Jaw pain; Prior surgery; Surgery date: Post-operative (0-2 days); Surgery type: Right mandibular molar removed; Additional info: Right mandibular molar removed Wednesday, trismus, facial swell TECHNIQUE: Imaging protocol: Computed tomography of the face with contrast. Radiation optimization: All CT scans at this facility use at least one of these dose optimization techniques: automated exposure control; mA and/or kV adjustment per patient size (includes targeted exams where dose is matched to clinical indication); or iterative reconstruction. Contrast material: OMNI 350; Contrast volume: 100 ml; Contrast route: INTRAVENOUS (IV); REPORTING DATA: Count of CT and Cardiac NM exams in prior 12 months: This patient has received 0 known CTs and 0 known cardiac nuclear medicine studies in the 12 months prior to the current study. COMPARISON: No relevant prior studies available. RADIATION DOSE METRICS: Total DLP (mGy-cm): 652.3 FINDINGS: Orbital cavities: Orbits are normal. Globes are unremarkable. Bones/joints: No acute fracture. Paranasal sinuses: Left frontal and anterior ethmoid sinus opacification. Lymph nodes: There are mildly enlarged submandibular lymph nodes with short axis of 7 mm. Soft tissues: There is inflammation of the right facial and submandibular fat. There is thickening of the platysma. There is no fluid collection to indicate soft tissue abscess. Dental: There is a right posterior mandibular lucency consistent with tooth extraction socket. There is soft tissue and gas within this socket consistent recent surgery. CT/CT facial bones w con [id number] IMPRESSION: Right posterior mandibular molar extraction tooth socket. There is edema throughout the adjacent right facial and submandibular fat consistent with cellulitis. No soft tissue Abscess identified.
--- NOTE | 2022-05-17 15:33 | ED_ITS ---
HPI - Dental/Oral General: Chief complaint: Dental/Oral Stated complaint: Face swelling/Dental Pain Time Seen by Provider: 05/17/22 15:25 History of Present Illness: 21-year-old female presents to the emergency department complaining of right facial pain and swelling. She reports that she had her right mandibular wisdom tooth removed by [facility] in [place]. Patient was seen yesterday with severe pain. Overnight her face started swelling on the right side. Now she is having difficulty opening up her mouth. She has not been eating and drinking as much due to the difficulty and pain with opening her mouth. She has no trouble breathing. No fever. She was given hydrocodone yesterday and this helped some but the pain is still present and might be getting slightly worse. I am unable to see the surgical site due to trismus. Patient is in agreement to perform a CT scan with IV contrast. Associated symptoms: Denies fever(s) or odynophagia Review of Systems General: Reports: 10 or more systems reviewed and unremarkable except in HPI and below Const: Reports: fatigue; Denies: fever(s) or chills ENMT: Reports: mouth pain, oral sores, dental pain and sinus pain; Denies: throat pain, odynophagia, hoarseness, swelling of lips/tongue, nasal congestion or nasal obstruction PFSH ED PFSH: Medical History Migraine Denies orders-has not needed medication in a couple of years. Denies having any symptoms since about 2019. No pertinent past medical history Denies diabetes, asthma, hypertension, seizures, DVT/PE PCP: KYLEIGH Reyes Surgical History Hx of tonsillectomy (03/13/17) Performed in [place], [place] Family History Mother Hypertension Father Hypertension Hypercholesteremia Grandfather Hypertension Maternal Heart disease Maternal Grandmother Hypertension Maternal Heart disease Maternal Thyroid disease Maternal Hypercholesteremia Maternal Breast cancer Paternal, age at diagnosis unknown Colon cancer Paternal, age at diagnosis unknown Family/Other Diabetes Maternal aunt and maternal great aunt Thyroid disease Maternal Aunt, Maternal Great Aunt Denies family history of Uterine cancer Stroke Physical Exam Const: COMMON NORMALS: no limitations, alert and well nourished EXAM LIMIT ATIONS: no altered mental status HENMT: COMMON NORMALS: normocephalic, atraumatic and external ears normal HEAD & SCALP: normocephalic and atraumatic FACE & SINUS: edema on the right and other (Trismus is noted. I can faintly see the right mandibular gums where there ); face not symmetric, no crepitus and no erythema EXTERNAL EAR: Yes external ears normal Eye: COMMON NORMALS: EOMs intact bilaterally, conjunctivae normal and no scleral icterus CONJUNCTIVA: Yes conjunctivae normal Neck/C-Spine: COMMON NORMALS: no JVD GENERAL: Yes normal visual inspection and Yes trachea midline Resp: COMMON NORMALS: normal respiratory effort, No use of accessory muscles and clear to auscultation bilaterally AUSCULTATION: clear to auscultation bilaterally Cardio: COMMON NORMALS: no JVD, regular rate and regular rhythm RATE: regular rate RHYTHM: regular rhythm GI: COMMON NORMALS: Soft to palpation and non-tender PALPATION: Yes Soft to palpation and No Guarding due to palpation present (GI) Extremity: COMMON NORMALS: normal to inspection Neuro: COMMON NORMALS: moves all extremities, no focal motor deficits and no sensory deficits noted SENSORIUM/ORIENTATION: Yes alert SPEECH: speech normal Psych: COMMON NORMALS: mental status grossly normal, Normal thought process present, cooperative, normal affect and speech normal SPEECH: Yes normal speech THOUGHT PROCESS: Normal thought process present Skin: COMMON NORMALS: no rashes or lesions noted, turgor normal and no jaundice GENERAL SKIN EXAM: no rashes or lesions noted and turgor normal Course Vital Signs: Vital signs: Vital Signs Temperature 98.8 F 05/17/22 15:21 Pulse Rate 83 05/17/22 16:57 Respiratory Rate 16 05/17/22 15:32 Blood Pressure 135/85 05/17/22 16:57 Pulse Oximetry 94 05/17/22 16:57 Oxygen Delivery Me thod 05/17/22 16:[address] [facility] - Dental/Oral Medical Decision Making 21-year-old female presenting with complications after wisdom tooth extraction. Patient reports that she did not have to have general anesthesia for this. She has not been on antibiotics. She has had increasing pain and now facial swelling and trismus. CT scan of the facial bones with contrast will be performed in order to rule out any abscess and to evaluate for any deep space infection or complicating factors. I will give the patient 3 g of Unasyn and some pain medications and IV fluids. CT scan of the face with contrast did not show any abscess. There is facial cellulitis. The patient was given 3 g of Unasyn. She will be discharged on Augmentin 3 times a day. She is instructed to follow-up with her dentist tomorrow, which is going to open in 15 hrs. Lab Data Radiology Impressions Face CT 05/17/22 15:32 IMPRESSION: Right posterior mandibular molar extraction tooth socket. There is edema throughout the adjacent right facial and submandibular fat consistent with cellulitis. No soft tissue Abscess identified. Discharge Plan Discharge Patient Disposition: Home Clinical Impression: Cellulitis of face, Dental infection Condition: Stable Prescriptions: New amoxicillin-pot clavulanate 875-125 mg tablet 1 tab PO Q8H 10 Days Qty: 30 0RF Discontinued prednisone 20 mg tablet 20 mg PO TID Qty: 15 0RF Rx Instructions: 1 p.o. 3 times daily x3 days, 1 p.o. twice daily x2 days, 1 p.o. daily x2 days ibuprofen 800 mg tablet 800 mg PO Q8H PRN (Reason: pain) Qty: 30 0RF No Action diclofenac sodium 75 mg tablet,delayed release (DR/EC) 75 mg PO Q12H PRN (Reason: pain) Qty: 20 0RF tizanidine 4 mg tablet 4 mg PO Q6H PRN (Reason: muscle spasticity) Qty: 20 0RF Rx Instructions: do not exceed 3 doses per 24 hrs hydrocodone-acetaminophen 5-300 mg tablet 1 tab PO Q6H PRN (Reason: pain) 3 Days Qty: 12 0RF Discharge Orders: Discharge ED (Routine); Ordered 05/17/22 Ordered By: Cosme Mcmahon Referrals: Nidhi Chacon FNP [Primary Care Provider] - Discharge Diet: Advance as tolerated Patient Instructions: Toothache (ED), Opioid Safety, Pain Management Activity Restrictions/Additional Instructions: Take antibiotics as prescribed. Please take probiotics for the next month. Follow up with Elena Robbins on Wednesday. Return to ER if you have trouble swallowing or breathing. Coding Level of Care Code ED Community Outreach Specialist for Shawna Bower
[2022-05-17] MEDS: morphine 4 mg/mL SDV 1 mL IVP (15:47)
[2022-05-17] MEDS: ondansetron 2 mg/ML SDV 2 mL 4 MG IVP (15:47)
[2022-05-17] MEDS: iohexol 350 mg/mL 500 mL Btl (per mL) IV (15:57)
[2022-05-17] MEDS: sodium chloride 0.9% 1,000 ML 999 ML IV (16:07)
[2022-05-17] MEDS: ampicillin-sulbactam 3 GM in sodium chloride 0.9% (plus) 50 ML IV (16:12)
[2022-05-17 16:57] VITALS: BP 135/85; PULSE 83; O2SAT 94
--- NOTE | 2022-05-17 17:01 | XRR_ITS ---
PROCEDURE INFORMATION: Exam: XR Chest Exam date and time: 05/17/2022 5:09 PM Age: 21 years old Clinical indication: Dyspnea; Additional info: Hypoxia TECHNIQUE: Imaging protocol: Radiologic exam of the chest. Views: 1 view. COMPARISON: No relevant prior studies available. FINDINGS: Lungs: Unremarkable. No consolidation. Pleural spaces: Unremarkable. No pleural effusion. No pneumothorax. Heart/Mediastinum: Unremarkable. No cardiomegaly. Bones/joints: Unremarkable. XR/XR chest 1V portable [id number] IMPRESSION: No acute findings.
== END 2022-05-17 17:24 | disposition home or self-care (01) ==
PROVIDERS: Emergency Provider Emergency Medicine; PCP Nurse Practitioner Family
DX: K04.7 Periapical abscess without sinus (principal); L03.211 Cellulitis of face
CPT/HCPCS: 70487; 71045; 96365; 96375; 99285; J0295; J2270; J2405; J7030; Q9967

== ENCOUNTER → 2022-10-23 09:00 | Outpatient (BNVA) | payer MEDICAID, SELFPAY | PROVIDERS: PCP Nurse Practitioner Family; Visit Provider Nurse Practitioner Women's Health | DX: Z01.419 Encounter for gynecological examination (general) (routine) without abnormal findings (principal); R87.610 Atypical squamous cells of undetermined significance on cytologic smear of cervix (ASC-US); R87.810 Cervical high risk human papillomavirus (HPV) DNA test positive; N76.0 Acute vaginitis; Z30.431 Encounter for routine checking of intrauterine contraceptive device | CPT/HCPCS: 87624 ==

== ENCOUNTER → 2022-12-01 15:52 | Outpatient (BNVA) | payer BC, MEDICAID, SELFPAY | PROVIDERS: PCP Nurse Practitioner Family; Visit Provider Nurse Practitioner Women's Health | DX: R87.619 Unspecified abnormal cytological findings in specimens from cervix uteri (principal) | CPT/HCPCS: 87624; 88175 ==

== ENCOUNTER → 2023-10-29 11:15 | Outpatient (BNVA) | payer BC, MEDICAID, SELFPAY | PROVIDERS: PCP Nurse Practitioner Family; Visit Provider Nurse Practitioner Women's Health | DX: R87.619 Unspecified abnormal cytological findings in specimens from cervix uteri (principal) | CPT/HCPCS: 84315; 87624 ==

== ENCOUNTER → 2024-01-18 14:58 | Outpatient (BNVA) | payer BC, MEDICAID, SELFPAY | PROVIDERS: PCP Nurse Practitioner Family; Visit Provider Podiatrist Foot & Ankle Surgery | DX: M79.672 Pain in left foot (principal); S91.332A Puncture wound without foreign body, left foot, initial encounter; W18.02XA Striking against glass with subsequent fall, initial encounter | CPT/HCPCS: 73630 ==

== ENCOUNTER 2024-01-27 16:49 | Outpatient (CLI) | payer BC, MEDICAID, SELFPAY ==
--- NOTE | 2024-01-27 17:00 | MR_ITS ---
WS: [id number] MRI LEFT FOOT WITHOUT CONTRAST. COMPARISON: Radiographs 01/18/2024 Multiplanar, multisequence imaging is performed without contrast. History: Stepped on piece of glass 2 weeks ago. Continued pain. Evaluate for flexor tendon injury. No fractures or marrow edema. No abscess or fluid is identified. There is a very small superficial 4 mm foreign body in the plantar surface of the foot at the level of the mid fifth metatarsal with a sm all amount of blooming artifact. There is no adjacent fluid. There is an additional 10 mm T2 hyperint ense focus along the plantar surface of the foot at the level of the first tarsal metatarsal joint. V esvin nonspecific in appearance and does not extend to a tendon. Small amount of fluid between the third and fourth proximal metatarsals with edema in the proximal fo urth metatarsal. This may be related to arthritis. There is no tract extending superficial to suggest this was the area of injury. The flexor houses longus and flexor digitorum longus tendons are normal. There is no fluid in the ten don sheaths. The visualized anterior tibial tendon is also normal. MR/MR foot LT wo con* [id number] IMPRESSION: 1. No signal abnormalities within the flexor tendons of the foot or the anteri or tibialis tendon. 2. No soft tissue mass or fluid collection. 3. 4 mm superficial foreign body in the plantar surface of the foot at the lev el of the fifth metatarsal. This does not appear to be acute. 4. Small amount of proximal intermetatarsal edema between the third and fourth metatarsals. Associated marrow edema in the plantar surface of the fourth meta tarsal. This may be related to arthritis.
== END 2024-01-27 16:50 | disposition home or self-care (01) ==
LOC: RAD 16:50
PROVIDERS: PCP Nurse Practitioner Family; Visit Provider Podiatrist Foot & Ankle Surgery
DX: S91.342A Puncture wound with foreign body, left foot, initial encounter (principal); R22.42 Localized swelling, mass and lump, left lower limb; W25.XXXA Contact with sharp glass, initial encounter
CPT/HCPCS: 73718